=== PATIENT | male | born 1980 | race Caucasian/White ===

== ENCOUNTER 2017-05-23 18:06 | Inpatient (IN) | payer OTHER ==
[~2017-05-23] VITALS: Ht 188 cm; Wt 86.2 kg
--- NOTE | 2017-05-23 18:48 | ED PSYCHIATRIC COMPLAINT ---
History of Present Illness General Chief Complaint: ETOH/Drug Related Complaint Stated Complaint: ETOH DETOX Source: patient Exam Limitations: no limitations Vital Signs & Intake/Output Vital Signs & Intake/Output Vital Signs Date Time Temp Pulse Resp B/P B/P Pulse O2 O2 Flow FiO2 Mean Ox Delivery Rate 05/24 1245 98.1 96 20 142/89 05/24 1244 98.1 96 20 142/89 05/24 1238 98.1 96 20 142/89 100 Room Air 05/24 0738 98.3 76 18 138/83 98 Room Air 05/24 0530 99.0 81 20 124/82 05/24 0530 99.0 81 20 124/82 99 Room Air 05/24 0130 98.2 90 20 130/96 05/24 0119 98.2 90 20 130/96 98 Room Air 05/24 0030 99.1 90 18 140/80 05/24 0030 99.1 90 18 140/80 99 Room Air 05/23 2330 99.6 92 18 132/86 99 Room Air 05/23 2234 99.5 91 18 133/82 05/23 2230 99.6 92 18 132/86 05/23 2229 99.5 91 18 133/82 100 Room Air 05/23 2030 99.5 100 18 142/97 05/23 2029 99.5 100 18 142/97 05/23 2023 99.5 100 18 142/97 05/23 2019 99.5 100 18 142/97 98 Room Air 05/23 1928 Room Air 05/23 1812 98.1 92 18 162/112 98 Room Air ED Intake and Output 05/24 0000 05/23 1200 Intake Total 960 Output Total Balance 960 Intake, Oral 960 Patient 180 lb Weight Weight Reported by Patient Measurement Method Allergies Coded Allergies: Sulfa (Sulfonamide Antibiotics) (Severe, rash 05/23/17) Triage Note: 36 YO MALE TO TRIAGE REQUESTING ETOH DETOX. STATES HE DRINKA ABOUT A LITER OF VODKA DAILY, LAST DRINK WAS THIS AM. STATES HIS LAST DETOX WAS ABOUT 1 WEEK AGO, STATES HE WAS SENT IN FROM [facility] FOR DETOX. DENIES SEZUIRE HISTORY. DENIES SI/HI Triage Nurses Notes Reviewed? yes Onset: Gradual Duration: worse persistent since (8 years) Timing: recent history Severity: moderate HPI: Patient is a 36-year-old male presenting to the emergency department to complaint of requesting alcohol detox. He usually drinks 1 L of vodka daily. Last drink was this morning around 10 AM. Took 6-8 shots of vodka. Denies any other alcohol use. No other drug use. Recently was admitted to detox and discharged approximately 2 weeks ago. He lasted about 2 days before drinking again. Denies any suicidal or homicidal ideation. When he doesn't drink he feels anxious and tremulous. Denies any hallucinations. Denies any withdrawal seizures or history of them. No abdominal pain. No diarrhea. Nausea without vomiting. (Viridiana Chilel) Reconcile Medications Bupropion HCl (Bupropion XL) 300 MG TAB.ER.24H 1 TAB PO DAILY MENTAL HEALTH ( Reported) Hydrochlorothiazide 25 MG TABLET 1 TAB PO DAILY HEART (Reported) Lisinopril 40 MG TABLET 1 TAB PO DAILY HEART (Reported) (Celia Rosales MD) Past History Travel History Traveled to [place] past 21 day No Medical History Any Pertinent Medical History? 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 No (Viridiana Chilel) Review of Systems Review of Systems Constitutional: Reports: malaise. Comments Review of systems: See HPI, All other systems negative. Constitutional, no chills fever or weight loss HEENT: No visual changes no sore throat no congestion Cardiovascular: No chest pain ,palpitation , orthopnea or ankle swelling Skin, no jaundice no rashes Respiratory: No dyspnea cough sputum or hemoptysis GI: pos nausea : No dysuria No hematuria Muscle skeletal: no back pain, no neck pain, Neurologic: No numbness no confusion no headaches Psych: pos stress and anxiety Heme/endocrine: No bruising no bleeding no polyuria or polydipsia Immunology: No splenectomy or history of AIDS (Viridiana Chilel) Physical Exam Physical Exam General Appearance: no apparent distress, alert, awake, comfortable Neurological/Psychiatric: alert Comments: Well-developed well-nourished person in no acute distress HEENT: . Pupils equally round and reactive to light and accommodation. Nose is atraumatic. Neck: Inspection Back: Nontender Cardiovascular: Regular rate and rhythms no murmurs rubs or gallops, normal JVP Respiratory: No respiratory distress.breath sounds clear to auscultation bilaterally Abdomen: Soft, nontender nondistended, no appreciable organomegaly. Normal bowel sounds. No ascites Extremity: No edema Neuro: Alert oriented x3 Skin: Face appears flushed, otherwise ,No appreciable rash on exposed skin, skin is warm and dry. Psych: anxious appearing, slightly tremulous, memory and judgment is normal. SAD PERSONS Done? patient not suicidal (Federica MCCANN,Viridiana) Progress Differential Diagnosis: pancreatitis, electrolyte abnormality, dehydration, alcohol withdrawal, polysubstance abuse Plan of Care: Orders Procedure Date/time Status Regular Diet 05/24 B Active Patient Data 05/24 1235 Active ED Holding Orders 05/24 1220 Active Admit to inpatient 05/24 1220 Active Vital Signs 05/24 1220 Active Code Status 05/24 1220 Active Pathway - chart 05/24 1154 Active CASE MANAGEMENT CONSULT 05/24 0732 Active CASE MANAGEMENT CONSULT 05/24 0719 Active Intake & Output 05/23 2057 Active Add-on Test (ER Only) 05/23 2034 Active LIPASE 05/23 1855 Complete AMYLASE 05/23 1855 Complete CIWA 05/23 1823 Active URINE DRUG SCREEN FOR ER ONLY 05/23 1809 Complete ETHANOL 05/23 1809 Complete COMPREHENSIVE METABOLIC PANEL 05/23 1809 Complete CBC WITHOUT DIFFERENTIAL 05/23 1809 Complete Current Medications Sig/Urmila Start time Last Medication Dose Stop Time Status Admin Lorazepam 1 MG Q12H 05/26 0000 AC (Ativan) 05/26 1201 Lorazepam 1.5 MG Q6 05/25 0600 AC (Ativan) 05/25 1801 Lorazepam 2 MG Q6 05/24 1200 AC (Ativan) 05/25 0001 Lorazepam 1 MG Q2P PRN 05/24 1200 AC (Ativan) Folic Acid 1 MG DAILY 05/24 1154 UNVr 05/24 (Folic Acid) 05/26 1001 1245 Multivitamins 1 TAB DAILY 05/24 1154 UNVr 05/24 (Theragran Vitamins) 1245 Thiamine HCl 100 MG DAILY 05/24 1154 UNVr 05/24 (Vitamin B1) 05/26 1001 1245 Bupropion HCl 300 MG DAILY 05/24 1153 UNVr 05/24 (Wellbutrin XL) 1245 Hydrochlorothiazide 25 MG DAILY 05/24 1153 UNVr 05/24 (Hydrodiuril) 1245 Lisinopril 40 MG DAILY 05/24 1153 UNVr 05/24 (Prinivil) 1245 Sodium Chloride 1,000 ML ONCE ONE 05/23 194 CAN (Normal Saline 0.9%) 05/24 223 Laboratory Tests 05/23/17 1855: Anion Gap 24 H, Estimated GFR > 60, BUN/Creatinine Ratio 13.6, Glucose 118 H, Calcium 9.3, Total Bilirubin 0.7, AST 116 H, ALT 158 H, Alkaline Phosphatase 74, Total Protein 7.5, Albumin 4.8, Globulin 2.7, Albumin/Globulin Ratio 1.8, Amylase 39, Lipase 200, CBC w Diff NO MAN DIFF REQ, RBC 4.75, MCV 94.5 H, MCH 32.4 H, RDW 14.8 H, MPV 6.8 L, Gran % 74.2, Lymphocytes % 18.6 L, Monocytes % 6.9, Eosinophils % 0.1, Basophils % 0.2, Absolute Granulocytes 5.2, Absolute Lymphocytes 1.3, Absolute Monocytes 0.5, Absolute Eosinophils 0, Absolute Basophils 0, PUBS MCHC 34.3, Serum Alcohol 204.0 05/23/17 1850: Urine Opiates Screen < 100.00, Methadone Screen < 40, Barbiturate Screen < 60, Ur Phencyclidine Scrn < 6.00, Amphetamines Screen < 100, U Benzodiazepines Scrn > 800 H, Urine Cocaine Screen < 50, Urine Cannabis Screen < 5.00 7:18 AM PATIENT SIGNED OUT TO ME BY DR SALINAS, PENDING CASE MANAGEMENT EVALUATION. 11:00 AM D/W KRAIG FROM CASE MANAGEMENT, WILL WORK ON VERIFYING INSURANCE FOR ADMISSION PURPOSES. 12:20 PM PATIENT APPROVED FOR INPATIENT ADMISSION. MEDICATED WITH DAILY MEDICATIONS AND ATIVAN, PATIENT TREMULOUS. D/W DR AUGUSTIN, D/W MOD. (Bobby POWER,Celia) Hand-Off Endorsed To: [place]ced POWER,Cruz Bustillo Endorsed Time: 2299 Pending: other (Federica MCCANNViridiana) Hand-Off Endorsed To: Celia Rosales MD Endorsed Time: 0700 Pending: other (INSURANCE VERIVICATION) ([place] POWER,Cruz Bustillo) Departure Departure Clinical Impression Primary Impression: Alcohol withdrawal Qualifiers: Complication of substance-induced condition: uncomplicated Qualified Code: F10.230 - Alcohol dependence with withdrawal, uncomplicated Departure Forms: Customer Survey General Discharge Information (Viridiana Chilel) Departure Disposition: STILL A PATIENT Condition: Guarded PA/SPOOLING SUPERVISOR Co-Sign Statement Statement: ED Attending supervision documentation- [X] I saw and evaluated the patient. I have also reviewed all the pertinent lab results and diagnostic results. I agree with the findings and the plan of care as documented in the PA's/SPOOLING SUPERVISOR's documentation. [X] I have reviewed the ED Record and agree with the PA's/SPOOLING SUPERVISOR's documentation. [] Additions or exceptions (if any) to the PAs/SPOOLING SUPERVISOR's note and plan are summarized below: [PT WAS AT DETOX 2 WEEKS AGO. Patient's CIWA score is escalating and is now up to 15. This puts patient at high risk for withdrawal seizure. Patient will require admission to the hospital. His insurance will need to be verified.] (Merced POWER,Cruz Bustillo) Departure Time of Disposition: 1221 Admission Note Spoke With: Avery Augustin MD Documentation of Exam: Documentation of any treatments & extenuating circumstances including Concerns Regarding Discharge (functional status, medication knowledge or non-compliance, living conditions, etc.) that warrant an admission rather than observation: [ CIWA MONITOR, ATIVAN TAPER, SEIZURE PRECAUTIONS, CRISIS CONSULTATION, TRANSFER TO OUTPATIENT REHAB WHEN STABLE] PA/SPOOLING SUPERVISOR Co-Sign Statement Statement: ED Attending supervision documentation- [] I saw and evaluated the patient. I have also reviewed all the pertinent lab results and diagnostic results. I agree with the findings and the plan of care as documented in the PA's/SPOOLING SUPERVISOR's documentation. [] I have reviewed the ED Record and agree with the PA's/SPOOLING SUPERVISOR's documentation. [] Additions or exceptions (if any) to the PAs/SPOOLING SUPERVISOR's note and plan are summarized below: [] (Celia Rosales MD)
[2017-05-23 19:09] LABS: ABSOLUTE BASOPHIL COUNT 0 /CUMM (0.0-0.2); ABSOLUTE EOSINOPHIL COUNT 0 /CUMM (0.0-0.7); ABSOLUTE GRANULOCYTE CT 5.2 /CUMM (1.4-6.5); ABSOLUTE LYMPH COUNT 1.3 /CUMM (1.2-3.4); ABSOLUTE MONOCYTE COUNT 0.5 /CUMM (0.10-0.60); BASOPHIL % 0.2 % (0.0-2.0); EOSINOPHIL % 0.1 % (0-5); GRANULOCYTE % 74.2 % (42.2-75.2); HEMATOCRIT 44.8 % (42-52); MEAN CORPUSCULAR HGB 32.4 PG (27.0-31.0); MEAN CORPUSCULAR HGB CONC 34.3 G/DL (33.0-37.0); MEAN CORPUSCULAR VOLUME 94.5 FL (80.0-94.0); MEAN PLATELET VOLUME 6.8 FL (7.4-10.4); PLATELET COUNT 340 /CUMM (130-400); RBC DISTRIBUTION WIDTH 14.8 % (11.5-14.5); RED BLOOD CELL CT 4.75 /CUMM (4.70-6.10); WHITE BLOOD CELL COUNT 7.1 /CUMM (4.8-10.8)
[2017-05-23 20:24] VITALS: BP 142/97
[2017-05-23 22:30] VITALS: BP 132/86
[2017-05-23 22:34] VITALS: BP 133/82
[2017-05-24] VITALS (12 sets, daily range): BP systolic 124–157; BP diastolic 80–100
[2017-05-24] MEDS ORDERED: BUPROPION XL300 M1 PO (12:03)
[2017-05-24] MEDS ORDERED: LISINOPRIL40 M1 PO (12:03)
[2017-05-24] MEDS ORDERED: HYDROCHLOROTHIA25 M1 PO (12:04)
--- NOTE | 2017-05-24 13:42 | History & Physical ---
Michael POWER,[facility] 05/24/17 1342: General Information and HPI MD Statement: I have seen and personally examined MICHAEL CHEN and documented this H&P. The patient is a 36 year old M who presented with a patient stated chief complaint of []. Source of Information: patient, family Exam Limitations: no limitations History of Present Illness: Chief complaint: Alcohol detox 36 years old male with past medical history of hypertension and depression, who presented to [facility] for alcohol detox. Patient has a long history of alcohol abuse for which he has undergone alcohol detox in facilities around 6-7 times in addition to several detox or 5 times in the past. His last admission in for alcohol detox was on the day before [place] and for which he stayed for 5 days however the patient started drinking 3 days after being discharged. Patient starts drinking when he feels anxious or depressed over his work problems or financial issues. Patient usually drinks 1 L of vodka daily in addition to multiple beers daily. His last drink was the day before admission at 10 AM. Patient went to [facility] which may have requesting detox but they required him to come to the hospital for medical stabilization since his CIWA score was too high. Patient reports feeling anxious and having showers when he stopped drinking, he denied any history of withdrawal seizures or ICU admissions in the past. Patient also reports some history of depression was suicidal attempts in the past, currently he is compliant with his meds. Currently the patient reports depressed mood and he stated that he wanted lying however he denies any suicidal ideation or plans. Patient also reports history of oral and genital herpes 3 weeks ago, currently is sexually active with one female partner and he does not use condoms Patient has history of smoking 1 pack per cigarettes daily for 15 years, he quit it 1 year ago. He denies recreational drug use Allergies/Medications Allergies: Coded Allergies: Sulfa (Sulfonamide Antibiotics) (Severe, rash 05/23/17) Home Med list Bupropion HCl (Bupropion XL) 300 MG TAB.ER.24H 1 TAB PO DAILY MENTAL HEALTH ( Reported) Hydrochlorothiazide 25 MG TABLET 1 TAB PO DAILY HEART (Reported) Lisinopril 40 MG TABLET 1 TAB PO DAILY HEART (Reported) Past History Travel History Traveled to [place] past 21 day No Medical History Neurological: NONE EENT: allergies Cardiovascular: hypertension Respiratory: NONE Gastrointestinal: NONE Hepatic: NONE Renal: NONE Musculoskeletal: NONE Psychiatric: anxiety, depression Endocrine: NONE Blood Disorders: NONE Cancer(s): NONE 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 Cardiovascular: Denies: chest pain, edema, orthopena, palpitations. Respiratory: Denies: cough, hemoptysis, short of breath. GI: Denies: bloating, constipation, diarrhea, nausea, vomiting. Genitourinary: Denies: no symptoms. Musculoskeletal: Denies: no symptoms. Skin: Denies: no symptoms. Neurological/Psychological: Reports: anxiety, tremors. Hematologic/Endocrine: Denies: no symptoms. Exam & Diagnostic Data Last 24 Hrs of Vital Signs/I&O Vital Signs Date Time Temp Pulse Resp B/P B/P Pulse O2 O2 Flow FiO2 Mean Ox Delivery Rate 05/24 1245 98.1 96 20 142/89 05/24 1244 98.1 96 20 142/89 05/24 1238 98.1 96 20 142/89 100 Room Air 05/24 0738 98.3 76 18 138/83 98 Room Air 05/24 0530 99.0 81 20 124/82 05/24 0530 99.0 81 20 124/82 99 Room Air 05/24 0130 98.2 90 20 130/96 05/24 0119 98.2 90 20 130/96 98 Room Air 05/24 0030 99.1 90 18 140/80 05/24 0030 99.1 90 18 140/80 99 Room Air 05/23 2330 99.6 92 18 132/86 99 Room Air 05/23 2234 99.5 91 18 133/82 05/23 2230 99.6 92 18 132/86 05/23 2229 99.5 91 18 133/82 100 Room Air 05/23 2029 99.5 100 18 142/97 05/23 2029 99.5 100 18 142/97 05/23 2023 99.5 100 18 142/97 05/23 2019 99.5 100 18 142/97 98 Room Air 05/23 1928 Room Air 05/23 181 98.1 92 18 162/112 98 Room Air Intake & Output 05/24 1600 05/24 0800 05/24 0000 Intake Total 960 Output Total Balance 960 Intake, Oral 960 Patient 180 lb Weight Weight Reported by Patient Measurement Method Physical Exam General Appearance Alert, Oriented X3, Cooperative Skin No Rashes, No Breakdown, No Significant Lesion, flushed skin HEENT Atraumatic, PERRLA, EOMI, Mucous Membr. moist/pink Neck Supple, No JVD Cardiovascular Regular Rate, Normal S1, Normal S2, No Murmurs Lungs Clear to Auscultation, Normal Air Movement Abdomen Normal Bowel Sounds, Soft, No Tenderness Neurological Normal Speech, Strength at 5/5 X4 Ext, bilateral tremors in both hands Extremities No Clubbing, No Cyanosis, No Edema, Normal Pulses Vascular Normal Pulses, Pulses Symmetrical Sepsis Peripheral Pulse Location: Radial Assessment/Plan Assessment: 36 years old male with past medical history of hypertension and depression, who presented to [facility] for alcohol detox. Patient has a long history of alcohol abuse for which he has undergone alcohol detox in facilities around 6-7 times in addition to several detox or 5 times in the past Vital signs on admission: Were normal except for mild increased blood pressure of 142/89 Labs on admission: CBC normal, BEp: Normal sodium and potassium, normal blood urea nitrogen, creatinine, elevated glucose of 118, anion gap 24, elevated AST of 116, AST 158, amylase 39, lipase 200, U tox was positive for benzo more than 800 #Alcohol withdrawal: Admit the patient to the general medicine floor CIWA score, closely watch for delirium tremens Ativan IV when necessary Ativan 2 mg every 6po Thiamine, Vitamin vitamin B12, folic acid supplementation Social consult Psych consult appreciated #medical conditions including depression and hypertension Continue home dose of hydrochlorothiazide, lisinopril,Bupropion Regular diet Full code DVT prophylaxis with subcutaneous Lovenox As Ranked By This Provider Problem List: 1. Alcohol withdrawal Qualifiers Complication of substance-induced condition: uncomplicated Qualified Code: F10.230 - Alcohol dependence with withdrawal, uncomplicated Core Measures/Misc (01/30) Acute Coronary Syndrome ACS Diagnosis: No Congestive Heart Failure Congestive Heart Failure Diagnosis No Cerebrovascular Accident CVA/TIA Diagnosis: No VTE (View Protocol) VTE Risk Factors Other No Mechanical VTE Prophylaxis d/t N/A MechProphylax Ordered No VTE Pharm Prophylaxis d/t NA PharmProphylax ordered Sepsis (View protocol) Sepsis Present: No Nellie POWER,Avery 05/24/17 1534: Attending MD Review Statement Attending Statement Attending MD Statement: examined this patient, discuss w/resident/PA/MARKETING TECHNOLOGY COORDINATOR, agreed w/resident/PA/MARKETING TECHNOLOGY COORDINATOR, reviewed EMR data (avail) Attending Assessment/Plan: Agree with resident assessment and plan. Will start PO Ativan standing and PRN IV, monitor for electrolyte abnormalities, social work consult, DVT PPx Tim Williamson 05/24/17 2104: Resident Review Statement Resident Statement: examined this patient, discussed with inclusion intern, agreed with inclusion intern, discussed with family, reviewed EMR data (avail), discussed with nursing , discussed with case mgmt, reviewed images, amended to note Other Findings: This is 36 years old male with past medical history of hypertension, alcohol withdrawal, record dependence, and depression, who presented to [facility] for alcohol detox. Patient reports multiple admission for alcohol detox in the [facility] and multiple admission to the alcohol rehabilitation. Patient starts drinking when he feels anxious or depressed over his work problems or financial issues. Patient usually drinks 1 L of vodka daily in addition to multiple beers daily. Patient reports feeling depressed, thought about , patient denied any current suicidal thoughts, ideation or plan. Patient reports tremor, sweating, hot flashes, heart racing, denies visual or voice hallucination. Patient also reports history of oral and genital herpes 3 weeks ago, currently is sexually active with one female partner and he does not use condoms. Physical examination, lab and imaging as above. Problem list: -Alcohol withdrawal/detox -Alcohol dependence -Depression/anxiety -Transaminitis -Anion gap -Hypertension. Plan: -Admit patient to general medical -Vitals every shift -Ativan by mouth every 6 -Ativan as needed pre [facility] protocol -Thiamine, multiple vitamin, folic acid supplement -Continue home medication -office worker consultation -Psychiatric consultation -Repeat CBC and basic electrolyte in a.m. -Regular diet -Pain pathway -DVT prophylaxis -Full code
--- NOTE | 2017-05-24 15:35 | Admission Certification ---
Admission Certification Certification Statement - As attending physician, I certify that at the time of - admission, based on clinical presentation, severity of - symptoms, need for further diagnostic testing and - therapeutic interventions, and risk of adverse outcomes - without in-hospital treatment, in my clinical assessment, - this patient requires an acute hospital stay for a minimum - of two nights or longer. I have also considered psychsocial - factors such as support system, advanced age, financial - issues, cognitive issues, and failed out-patient treatments, - past re-admission history, safety of patient, and lack of - compliance as applicable. Specific rationale supporting this admission is: Alcohol withdrawal with a history of DTs
[2017-05-25] VITALS (10 sets, daily range): BP systolic 136–146; BP diastolic 82–100
--- NOTE | 2017-05-25 07:43 | PN- Housestaff ---
Michael POWER,Marisol 05/25/17 0743: Subjective Follow-up For: Alcohol withdrawal medical conditions including depression and hypertension Subjective: Patient is seen and examined at bedside, he denies any symptoms of shakiness or anxiety, fever, maximum CIWA score in the last 24 hours was 14, patient reports having better mood today . She denies any chest pain, nausea, vomiting or diarrhea Review of Systems Constitutional: Denies: no symptoms. Cardiovascular: Denies: no symptoms. Respiratory: Denies: no symptoms. Gastrointestinal: Denies: no symptoms. Genitourinary: Denies: no symptoms. Musculoskeletal: Denies: no symptoms. Neurological/Psychological: Reports: see HPI. Objective Last 24 Hrs of Vital Signs/I&O Vital Signs Date Time Temp Pulse Resp B/P B/P Pulse O2 O2 Flow FiO2 Mean Ox Delivery Rate 05/25 0958 98.8 100 20 140/100 99 Room Air 05/25 0850 144/92 05/25 0800 146/92 05/25 0715 98.5 95 18 138/98 100 05/25 0700 98.5 95 18 138/98 05/25 0500 97.7 78 18 136/82 05/25 0300 97.7 78 18 136/82 05/25 0200 97.7 78 18 136/82 99 05/25 0100 98.3 70 18 140/100 05/24 2300 98.3 70 18 140/100 05/24 2200 98.3 70 18 140/100 100 Room Air 05/24 2100 98.7 87 18 156/100 05/24 1900 98.7 87 18 156/100 05/24 1801 156/100 05/24 1800 98.1 93 18 156/100 100 Room Air 05/24 1733 98.7 87 18 158/96 100 Room Air 05/24 1603 99.8 82 19 154/84 05/24 1557 99.8 82 19 154/84 99 Room Air 05/24 1433 99.5 85 18 157/96 05/24 1430 99.5 85 18 157/96 100 Room Air 05/24 1245 98.1 96 20 142/89 05/24 1244 98.1 96 20 142/89 05/24 1238 98.1 96 20 142/89 100 Room Air Intake & Output 05/25 1600 05/25 0800 05/25 0000 Intake Total 480 250 Output Total 120 Balance -120 480 250 Intake, IV 0 10 Intake, Oral 480 240 Number 0 0 Bowel Movements Output, Urine 120 Patient 190 lb Weight Weight Reported by Patient Measurement Method Physical Exam General Appearance: Alert, Oriented X3, Cooperative, No Acute Distress HEENT: Atraumatic, PERRLA, EOMI, Mucous Membr. moist/pink Neck: Supple, No JVD Cardiovascular: Normal S1, Normal S2, No Murmurs Lungs: Clear to Auscultation, Normal Air Movement Abdomen: Normal Bowel Sounds, Soft, No Tenderness Neurological: Normal Speech, Strength at 5/5 X4 Ext, Normal Tone, Sensation Intact Extremities: No Clubbing, No Cyanosis, No Edema Vascular: Normal Pulses Sepsis Peripheral Pulse Location: Radial Assessment/Plan Assessment: 36 years old male with past medical history of hypertension and depression, who presented to [facility] for alcohol detox. Patient has a long history of alcohol abuse for which he has undergone alcohol detox in facilities around 6-7 times in addition to several detox or 5 times in the past #Alcohol withdrawal: Maximum CIWA score) 24 hours was 14, patient required 2 mg Ativan IV overnight Admit the patient to the general medicine floor Ativan IV when necessary Ativan 2 mg every 6po Thiamine, Vitamin vitamin B12, folic acid supplementation Social consult Psych consult appreciated #medical conditions including depression and hypertension Continue home dose of hydrochlorothiazide, lisinopril,Bupropion Regular diet Full code DVT prophylaxis with subcutaneous Lovenox Problem List: 1. Alcohol withdrawal Pain Ratin Pain Location: N/A Pain Goal: Remain pain free Pain Plan: Pain pathway Tomorrow's Labs & Rationales: cbc bep DVT/Prophylaxis: pharmacological Avery Ballard MD 05/25/17 1048: Attending MD Review Statement Attending Statement Attending MD Statement: examined this patient, discuss w/resident/PA/PHOTO PRINTER, agreed w/resident/PA/PHOTO PRINTER, reviewed EMR data (avail) Attending Assessment/Plan: Doing well. CIWA controlled. Will continue Ativan taper.
[2017-05-25 09:30] LABS: ABSOLUTE BASOPHIL COUNT 0 /CUMM (0.0-0.2); ABSOLUTE EOSINOPHIL COUNT 0.2 /CUMM (0.0-0.7); ABSOLUTE GRANULOCYTE CT 3.6 /CUMM (1.4-6.5); ABSOLUTE LYMPH COUNT 1.4 /CUMM (1.2-3.4); ABSOLUTE MONOCYTE COUNT 0.4 /CUMM (0.10-0.60); BASOPHIL % 0.5 % (0.0-2.0); EOSINOPHIL % 3.3 % (0-5); GRANULOCYTE % 63.8 % (42.2-75.2); HEMATOCRIT 43.9 % (42-52); MEAN CORPUSCULAR HGB 32.3 PG (27.0-31.0); MEAN CORPUSCULAR HGB CONC 33.8 G/DL (33.0-37.0); MEAN CORPUSCULAR VOLUME 95.4 FL (80.0-94.0); MEAN PLATELET VOLUME 8.5 FL (7.4-10.4); RBC DISTRIBUTION WIDTH 14.4 % (11.5-14.5)
[2017-05-25 10:53] LABS: PLATELET COUNT 194 /CUMM (130-400); WHITE BLOOD CELL COUNT 7.3 /CUMM (4.8-10.8)
[2017-05-26 00:54] VITALS: BP 128/84
[2017-05-26 02:05] VITALS: BP 136/104
--- NOTE | 2017-05-26 07:16 | PN- Housestaff ---
Michael POWER,Marisol 05/26/17 0716: Subjective Follow-up For: Alcohol withdrawal medical conditions including depression and hypertension Subjective: Patient is seen and examined at bedside, he denies any symptoms of shakiness or anxiety, fever, maximum CIWA score in the last 24 hours was 4, patient reports having better mood today . She denies any chest pain, nausea, vomiting or diarrhea Review of Systems Constitutional: Denies: no symptoms. Cardiovascular: Denies: no symptoms. Respiratory: Denies: no symptoms. Gastrointestinal: Denies: no symptoms. Genitourinary: Denies: no symptoms. Musculoskeletal: Denies: no symptoms. Objective Last 24 Hrs of Vital Signs/I&O Vital Signs Date Time Temp Pulse Resp B/P B/P Pulse O2 O2 Flow FiO2 Mean Ox Delivery Rate 05/26 1342 98.8 108 20 132/81 98 Room Air 05/26 0900 98.0 118 20 140/98 100 Room Air 05/26 0205 98.0 90 18 136/104 97 05/26 0054 97.8 99 20 128/84 99 05/25 2212 98.6 80 20 143/90 98 Room Air Intake & Output 05/26 1600 05/26 0800 05/26 0000 Intake Total 240 240 Output Total Balance 240 240 Intake, Oral 240 240 Physical Exam General Appearance: Alert, Oriented X3, Cooperative, No Acute Distress Skin: No Rashes, No Breakdown, No Significant Lesion HEENT: Atraumatic, PERRLA, EOMI, Mucous Membr. moist/pink Neck: Supple, No JVD Cardiovascular: Regular Rate, Normal S1, Normal S2, No Murmurs Lungs: Clear to Auscultation, Normal Air Movement Abdomen: Normal Bowel Sounds, Soft, No Tenderness Neurological: Normal Speech, Strength at 5/5 X4 Ext, Normal Tone, Sensation Intact Extremities: No Clubbing, No Cyanosis, No Edema Vascular: Normal Pulses Assessment/Plan Assessment: 36 years old male with past medical history of hypertension and depression, who presented to [facility] for alcohol detox. Patient has a long history of alcohol abuse for which he has undergone alcohol detox in facilities around 6-7 times in addition to several detox or 5 times in the past #Alcohol withdrawal: Maximum CIWA score) 24 hours was 4, patient did not require IV Ativan overnight Continue to monitor on general medicine floor Ativan IV when necessary Ativan 1.5 mg every 6po Seroquel when necessary at night for insomnia Thiamine, Vitamin vitamin B12, folic acid supplementation Social consult #medical conditions including depression and hypertension Continue home dose of hydrochlorothiazide, lisinopril,Bupropion Regular diet Full code DVT prophylaxis with subcutaneous Lovenox Problem List: 1. Alcohol withdrawal Pain Ratin Pain Location: n/a Pain Goal: Pain 4 or less Pain Plan: PAIN PATHWAY Tomorrow's Labs & Rationales: CBC BEP DVT/Prophylaxis: mechanical, pharmacological Avery Ballard MD 05/26/17 1143: Attending MD Review Statement Attending Statement Attending MD Statement: examined this patient, discuss w/resident/PA/GLOBE CLEANER, agreed w/resident/PA/GLOBE CLEANER, reviewed EMR data (avail) Attending Assessment/Plan: Doing well on Ativan taper, will continue current management, taper tomorrow with anticipated discharge tomorrow to [facility].
[2017-05-26 08:13] LABS: ABSOLUTE BASOPHIL COUNT 0 /CUMM (0.0-0.2); ABSOLUTE EOSINOPHIL COUNT 0.2 /CUMM (0.0-0.7); ABSOLUTE GRANULOCYTE CT 4.2 /CUMM (1.4-6.5); ABSOLUTE MONOCYTE COUNT 0.3 /CUMM (0.10-0.60); BASOPHIL % 0.3 % (0.0-2.0); EOSINOPHIL % 2.8 % (0-5); GRANULOCYTE % 73.6 % (42.2-75.2); MEAN CORPUSCULAR HGB 32.7 PG (27.0-31.0); MEAN CORPUSCULAR HGB CONC 34.2 G/DL (33.0-37.0); MEAN CORPUSCULAR VOLUME 95.5 FL (80.0-94.0); PLATELET COUNT 160 /CUMM (130-400); RBC DISTRIBUTION WIDTH 14.6 % (11.5-14.5); WHITE BLOOD CELL COUNT 5.6 /CUMM (4.8-10.8)
[2017-05-26 09:00] VITALS: BP 140/98
[2017-05-26 13:42] VITALS: BP 132/81
--- NOTE | 2017-05-26 14:17 | Cons- Psychiatry ---
Psychiatric Consult Date of Consult: 05/26/17 Reason for Consult: "Depression, anxiety, Hx of multiple ETOH detox." History of Present Illness: 36 M had presented to [facility] for alcohol rehab, but was sent to the ED and admitted medically to complete his detox. Allergies: Coded Allergies: Sulfa (Sulfonamide Antibiotics) (Severe, rash 05/23/17) Current Medications: Current Medications Sig/Urmila Start time Last Medication Dose Route Stop Time Status Admin Acetaminophen 500 MG Q6P PRN 05/24 1345 AC PO Bupropion HCl 300 MG DAILY 05/24 1153 AC 05/26 PO 1036 Enoxaparin Sodium 40 MG 1700 05/25 1700 AC 05/25 SC 1750 Folic Acid 1 MG DAILY 05/24 1342 AC 05/26 PO 1036 Hydrochlorothiazide 25 MG DAILY 05/24 1153 AC 05/26 PO 1036 Hydrocodone Bitart/ 1 TAB Q8P PRN 05/24 1345 AC Acetaminophen PO Lisinopril 40 MG DAILY 05/24 1153 AC 05/26 PO 1036 Lorazepam 1 MG Q6 05/26 1200 AC 05/26 PO 1243 Lorazepam 1 MG Q12H 05/26 0000 DC PO 05/26 1201 Lorazepam 2 MG Q6 05/24 1800 DC 05/26 PO 0500 Lorazepam 0 Q1P PRN 05/24 1345 AC 05/24 IV 1616 Multivitamins 1 TAB DAILY 05/24 1341 AC 05/26 PO 1037 Oxycodone HCl 5 MG Q6P PRN 05/24 1345 AC PO Thiamine HCl 100 MG DAILY 05/24 1341 AC 05/26 PO 1036 Past History Past Medical History Neurological: NONE EENT: allergies Cardiovascular: hypertension Respiratory: NONE Gastrointestinal: NONE Hepatic: NONE Renal: NONE Musculoskeletal: NONE Psychiatric: anxiety, depression Endocrine: NONE Blood Disorders: NONE Cancer(s): NONE FINANCIAL AID ADVISOR/Reproductive: NONE Past Surgical History Surgical History: non-contributory Psychosocial History Strengths/Capabilities: Motivated for treatment and has a supportive family Physical Limitations (Interventions): None Psychiatric Treatment History Psych Treatment Psychiatric Treatment Yes Inpatient Treatment Yes Outpatient Treatment Yes Location of Treatment [facility] in [place] Reason for Treatment Suicide attempt by wrist cutting and alcohol abuse Dates of Treatment 2012 Response to Treatment Unknown Diagnosis: Alcohol use d/o Risk Factors: history of suicide atmpts, SA/MH hospitalized, substance abuse, male Substance Use/Abuse History Drug Use/Abuse Substances Used/Abused Yes Substance Used/Abused Alcohol First Use Not 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 Denies SI of HI, but reports suicide attempt by wrist cutting in 2012, for which he was hospitalized. Depression 05/25; anxiety 09/22; 10 is the worst Denies hopelessness and helplessness, but reports worthlessness and guilt sometimes. Guilt is related to putting his family through another rehab incident. He reports difficulty with sleep initiation and maintenance. He has tried melatonin, Benadryl, Trazodone, and is asking for low dose Seroquel. He lives with his girlfriend and he has not children. He was started on bupropion in 2012 during his hospitalization. Lab Results: Laboratory Tests 05/26 05/26 0717 0710 Chemistry Sodium (137 - 145 mmol/L) 140 Potassium (3.5 - 5.1 mmol/L) 3.6 Chloride (98 - 107 mmol/L) 100 Carbon Dioxide (22 - 30 mmol/L) 25 Anion Gap (5 - 16) 15 BUN (9 - 20 mg/dL) 12 Creatinine (0.7 - 1.2 mg/dL) 1.0 Estimated GFR (>60 ml/min) > 60 BUN/Creatinine Ratio (7 - 25 %) 12.0 Hematology CBC w Diff NO MAN DIFF REQ WBC (4.8 - 10.8 /CUMM) 5.6 RBC (4.70 - 6.10 /CUMM) 4.40 L Hgb (14.0 - 18.0 G/DL) 14.4 Hct (42 - 52 %) 42.0 MCV (80.0 - 94.0 FL) 95.5 H MCH (27.0 - 31.0 PG) 32.7 H RDW (11.5 - 14.5 %) 14.6 H Plt Count (130 - 400 /CUMM) 160 MPV (7.4 - 10.4 FL) 8.0 Gran % (42.2 - 75.2 %) 73.6 Lymphocytes % (20.5 - 51.1 %) 17.3 L Monocytes % (1.7 - 9.3 %) 6.0 Eosinophils % (0 - 5 %) 2.8 Basophils % (0.0 - 2.0 %) 0.3 Absolute Granulocytes (1.4 - 6.5 /CUMM) 4.2 Absolute Lymphocytes (1.2 - 3.4 /CUMM) 1.0 L Absolute Monocytes (0.10 - 0.60 /CUMM) 0.3 Absolute Eosinophils (0.0 - 0.7 /CUMM) 0.2 Absolute Basophils (0.0 - 0.2 /CUMM) 0 PUBS MCHC (33.0 - 37.0 G/DL) 34.2 Diffential Diagnosis: Alcohol use d/o Substance-induced mood d/o R/O depressive d/o R/O anxiety d/o Impression: The patient should probably avoid bupropion if he will drink in the future, as the medicine can lower the seizure threshold. He denies any history of seizure. He wishes to start Seroquel for insomnia, and understands that it is an off- label use. He denies cardiac history, except for his report of brief atrial fibrillation this visit. He weas encouraged to re-engage with AA with a goal of finding a sponsor. Provisional Treatment Plan: 1. Lorazepam 2 mg PO q 6 hours, but had recently been decreased to 1 mg PO q 6 hours. We suggest following the ETOH Detox protocol, and this should be changed to lorazepam 1.5 mg PO q 6 hours for 4 doses, then lorazepam 1 mg PO q 6 hours for 4 doses, then lorazepam 0.5 mg q 6 hours for 4 doses, then stop. As needed dosing per ETOH Detox order set. Please advise if you need assistance with this. 2. Consider Seroquel 25 mg PO at bedtime, as needed for insomnia, an off-label use. May repeat one time one hour later. a. Before ordering this drug, EKG and maintain electrolytes, especially potassium and magnesium, to the upper portion of the normal range. b. Hold for overseadtion, respiratory depression. c. Hold for hypokalemia or hypo magnesemia d. Hold for arrhythmia or QTc greater than 475 mS. Psychiatry is signing off. Please reconsult if other psychiatric matters arise. Thank you for this consult.
[2017-05-26 16:00] VITALS: BP 132/81
[2017-05-26 21:48] VITALS: BP 132/98
[2017-05-27] VITALS: BP 132/98
[2017-05-27 06:35] VITALS: BP 124/84
--- NOTE | 2017-05-27 07:01 | PN- Housestaff ---
Michael POWER,Marisol 05/27/17 0700: Subjective Follow-up For: Alcohol withdrawal medical conditions including depression and hypertension Subjective: Patient is seen and examined at bedside, he denies any symptoms of shakiness or anxiety, fever, maximum CIWA score in the last 24 hours was 0, patient reports having better mood today . She denies any chest pain, nausea, vomiting or diarrhea Review of Systems Constitutional: Denies: no symptoms. Objective Last 24 Hrs of Vital Signs/I&O Vital Signs Date Time Temp Pulse Resp B/P B/P Pulse O2 O2 Flow FiO2 Mean Ox Delivery Rate 05/27 0904 80 132/82 05/27 0800 90 132/82 05/27 0635 98.3 78 16 124/84 100 Room Air 05/27 0000 97.9 89 18 132/98 05/26 2148 97.9 89 18 132/98 99 Room Air 05/26 1600 108 132/81 05/26 1342 98.8 108 20 132/81 98 Room Air Intake & Output 05/27 1600 05/27 0800 05/27 0000 Intake Total 300 720 Output Total 600 Balance -300 720 Intake, Oral 300 720 Output, Urine 600 Physical Exam General Appearance: Alert, Oriented X3, Cooperative, No Acute Distress HEENT: Atraumatic, PERRLA, EOMI Neck: Supple, No JVD Cardiovascular: Regular Rate, Normal S1, Normal S2, No Murmurs Lungs: Clear to Auscultation, Normal Air Movement Abdomen: Normal Bowel Sounds, Soft Extremities: No Clubbing, No Cyanosis, No Edema Vascular: Normal Pulses Assessment/Plan Assessment: 36 years old male with past medical history of hypertension and depression, who presented to [place] ED for alcohol detox. Patient has a long history of alcohol abuse for which he has undergone alcohol detox in facilities around 6-7 times in addition to several detox or 5 times in the past #Alcohol withdrawal: Maximum CIWA score) 24 hours was 0, patient did not require IV Ativan overnight Continue to monitor on general medicine floor Ativan IV when necessary Ativan 1 mg every 6po Seroquel when necessary at night for insomnia Thiamine, Vitamin vitamin B12, folic acid supplementation Social consult #medical conditions including depression and hypertension Continue home dose of hydrochlorothiazide, lisinopril,Bupropion If he continues to do well with Ativan taper he is expected to be discharged to [facility] over the weekend Regular diet Full code DVT prophylaxis with subcutaneous Lovenox Problem List: 1. Alcohol withdrawal Pain Ratin Pain Location: N/A Pain Goal: Remain pain free Pain Plan: PATHWAY Tomorrow's Labs & Rationales: CBC BEP DVT/Prophylaxis: pharmacological Avery Ballard MD 05/27/17 1204: Attending MD Review Statement Attending Statement Attending MD Statement: examined this patient, discuss w/resident/PA/PETROLEUM PRODUCTION ENGINEER, agreed w/resident/PA/PETROLEUM PRODUCTION ENGINEER, reviewed EMR data (avail) Attending Assessment/Plan: Steadily improving, continue taper, to be discharged to [facility] tomorrow or Tuesday.
[2017-05-27 08:00] VITALS: BP 132/82
[2017-05-27 09:32] LABS: ABSOLUTE BASOPHIL COUNT 0 /CUMM (0.0-0.2); ABSOLUTE EOSINOPHIL COUNT 0.2 /CUMM (0.0-0.7); ABSOLUTE GRANULOCYTE CT 4.9 /CUMM (1.4-6.5); ABSOLUTE LYMPH COUNT 1.2 /CUMM (1.2-3.4); ABSOLUTE MONOCYTE COUNT 0.4 /CUMM (0.10-0.60); BASOPHIL % 0.3 % (0.0-2.0); EOSINOPHIL % 2.9 % (0-5); GRANULOCYTE % 73.1 % (42.2-75.2); HEMATOCRIT 40.1 % (42-52); MEAN CORPUSCULAR HGB 32.8 PG (27.0-31.0); MEAN CORPUSCULAR HGB CONC 34.4 G/DL (33.0-37.0); MEAN CORPUSCULAR VOLUME 95.3 FL (80.0-94.0); MEAN PLATELET VOLUME 8.4 FL (7.4-10.4); PLATELET COUNT 153 /CUMM (130-400); RBC DISTRIBUTION WIDTH 14.4 % (11.5-14.5); RED BLOOD CELL CT 4.21 /CUMM (4.70-6.10); WHITE BLOOD CELL COUNT 6.8 /CUMM (4.8-10.8)
[2017-05-27] MEDS ORDERED: FOLIC ACID1 M1 PO (13:38)
[2017-05-27] MEDS ORDERED: ONE DAILY MULT1 EAC2 PO (13:38)
[2017-05-27] MEDS ORDERED: VITAMIN B-1100 MG PO (13:38)
[2017-05-27 15:50] VITALS: BP 130/86
[2017-05-27 22:34] VITALS: BP 132/84
[2017-05-28 06:42] VITALS: BP 119/79
--- NOTE | 2017-05-28 07:59 | PN- Housestaff ---
Michael POWER,Marisol 05/28/17 0759: Subjective Follow-up For: Alcohol withdrawal medical conditions including depression and hypertension Subjective: Patient is seen and examined at bedside, he denies any symptoms of shakiness or anxiety, fever, maximum CIWA score in the last 24 hours was 0, patient reports having better mood today . She denies any chest pain, nausea, vomiting or diarrhea Review of Systems Constitutional: Denies: no symptoms. Cardiovascular: Denies: no symptoms. Respiratory: Denies: no symptoms. Gastrointestinal: Denies: no symptoms. Genitourinary: Denies: no symptoms. Objective Last 24 Hrs of Vital Signs/I&O Vital Signs Date Time Temp Pulse Resp B/P B/P Pulse O2 O2 Flow FiO2 Mean Ox Delivery Rate 05/28 1501 98.5 96 18 140/80 99 Room Air 05/28 1116 88 124/82 05/28 0642 98.3 82 18 119/79 98 Room Air 05/27 2234 98.0 83 18 132/84 97 Room Air Intake & Output 05/28 1600 05/28 0800 05/28 0000 Intake Total 900 Output Total Balance 900 Intake, IV 0 Intake, Oral 900 Patient 190 lb Weight Physical Exam General Appearance: Alert, Oriented X3, Cooperative, No Acute Distress HEENT: Atraumatic, PERRLA, EOMI, Mucous Membr. moist/pink Neck: Supple, No JVD Cardiovascular: Normal S1, Normal S2, No Murmurs Lungs: Clear to Auscultation, Normal Air Movement Abdomen: Normal Bowel Sounds, Soft, No Tenderness Neurological: Normal Gait, Normal Speech, Strength at 5/5 X4 Ext Extremities: No Clubbing, No Cyanosis, No Edema Vascular: Normal Pulses Assessment/Plan Assessment: 36 years old male with past medical history of hypertension and depression, who presented to [facility] for alcohol detox. Patient has a long history of alcohol abuse for which he has undergone alcohol detox in facilities around 6-7 times in addition to several detox or 5 times in the past #Alcohol withdrawal: Maximum CIWA score) 24 hours was 0, patient did not require IV Ativan overnight Continue to monitor on general medicine floor Ativan IV when necessary Ativan 1mg Q12 , to finish the taper tomorrow Seroquel when necessary at night for insomnia Thiamine, Vitamin vitamin B12, folic acid supplementation Social consult #medical conditions including depression and hypertension Continue home dose of hydrochlorothiazide, lisinopril,Bupropion If he continues to do well with Ativan taper he is expected to be discharged to [facility] tomorrow Regular diet Full code DVT prophylaxis with subcutaneous Lovenox Problem List: 1. Alcohol withdrawal Pain Ratin Pain Location: n/a Pain Goal: Remain pain free Pain Plan: pathway Tomorrow's Labs & Rationales: cbc bep DVT/Prophylaxis: mechanical, pharmacological Avery Ballard MD 05/28/17 1550: Attending MD Review Statement Attending Statement Attending MD Statement: examined this patient, discuss w/resident/PA/TEAROOM HOST, agreed w/resident/PA/TEAROOM HOST, reviewed EMR data (avail) Attending Assessment/Plan: Doing well on Ativan taper, last dose will be tomorrow followed by discharge to [facility]. Continue current management.
[2017-05-28 09:00] LABS: ABSOLUTE BASOPHIL COUNT 0 /CUMM (0.0-0.2); ABSOLUTE EOSINOPHIL COUNT 0.2 /CUMM (0.0-0.7); ABSOLUTE GRANULOCYTE CT 5.8 /CUMM (1.4-6.5); ABSOLUTE LYMPH COUNT 1.1 /CUMM (1.2-3.4); ABSOLUTE MONOCYTE COUNT 0.4 /CUMM (0.10-0.60); BASOPHIL % 0.3 % (0.0-2.0); EOSINOPHIL % 2.5 % (0-5); GRANULOCYTE % 77.6 % (42.2-75.2); MEAN CORPUSCULAR HGB 32.8 PG (27.0-31.0); MEAN CORPUSCULAR HGB CONC 34.1 G/DL (33.0-37.0); MEAN CORPUSCULAR VOLUME 96.3 FL (80.0-94.0); MEAN PLATELET VOLUME 8.5 FL (7.4-10.4); PLATELET COUNT 147 /CUMM (130-400); RED BLOOD CELL CT 4.26 /CUMM (4.70-6.10); WHITE BLOOD CELL COUNT 7.4 /CUMM (4.8-10.8)
[2017-05-28 15:01] VITALS: BP 140/80
--- NOTE | 2017-05-28 16:38 | Patient Discharge Instructions ---
Discharge Instructions General Discharge Information You were seen/treated for: Alcohol withdrawal medical conditions including depression and hypertension Special Instructions: 1please follow-up with your PCP in 1 week of discharge 2-please avoid using alcohol Diet Continue normal diet: Yes Activity Full Activity/No Limits: Yes Acute Coronary Syndrome Inclusion Criteria At DC or during hospital stay patient has or had the following: ACS DIAGNOSIS No Discharge Core Measures Meds if any: Prescribed or Continued at Discharge Meds if any: NOT Prescribed or Continued at Discharge Congestive Heart Failure Inclusion Criteria At DC or during hospital stay patient has or had the following: CHF DIAGNOSIS No Discharge Core Measures Meds if any: Prescribed or Continued at Discharge Meds if any: NOT Prescribed or Continued at Discharge Cerebrovascular accident Inclusion Criteria At DC or during hospital stay patient has or had the following: CVA/TIA Diagnosis No Discharge Core Measures Meds if any: Prescribed or Continued at Discharge Meds if any: NOT Prescribed or Continued at Discharge Venous thromboembolism Inclusion Criteria VTE Diagnosis No VTE Type NONE VTE Confirmed by (Test) NONE Discharge Core Measures - Per Current guidelines, there needs to be overlap - treatment for the first 5 days of Warfarin therapy. - If discharged on Warfarin prior to 5 days of - overlap therapy, the patient will need to be - assessed for post discharge needs including - *Post discharge parental anticoagulation - *Warfarin and/or parental anticoagulation education - *Follow up date to check INR post discharge At least 5 days overlap therapy as Inpatient No Meds if any: Prescribed or Continued at Discharge Note: Overlap Therapy is Warfarin and Anticoagulant Meds if any: NOT Prescribed or Continued at Discharge
[2017-05-28 22:22] VITALS: BP 142/80
[2017-05-29 08:29] LABS: ABSOLUTE BASOPHIL COUNT 0 /CUMM (0.0-0.2); ABSOLUTE EOSINOPHIL COUNT 0.2 /CUMM (0.0-0.7); ABSOLUTE GRANULOCYTE CT 5.2 /CUMM (1.4-6.5); ABSOLUTE LYMPH COUNT 1.3 /CUMM (1.2-3.4); ABSOLUTE MONOCYTE COUNT 0.6 /CUMM (0.10-0.60); BASOPHIL % 0.3 % (0.0-2.0); EOSINOPHIL % 2.8 % (0-5); GRANULOCYTE % 70.7 % (42.2-75.2); HEMATOCRIT 42.2 % (42-52); MEAN CORPUSCULAR HGB 32.7 PG (27.0-31.0); MEAN CORPUSCULAR HGB CONC 33.9 G/DL (33.0-37.0); MEAN CORPUSCULAR VOLUME 96.5 FL (80.0-94.0); MEAN PLATELET VOLUME 8.3 FL (7.4-10.4); PLATELET COUNT 160 /CUMM (130-400); RBC DISTRIBUTION WIDTH 14.7 % (11.5-14.5); RED BLOOD CELL CT 4.37 /CUMM (4.70-6.10); WHITE BLOOD CELL COUNT 7.3 /CUMM (4.8-10.8)
--- NOTE | 2017-05-29 08:35 | PN- Housestaff ---
Assessment/Plan Assessment: 36 years old male with past medical history of hypertension and depression, who presented to [facility] for alcohol detox. Patient has a long history of alcohol abuse for which he has undergone alcohol detox in facilities around 6-7 times in addition to several detox or 5 times in the past #Alcohol withdrawal: Maximum CIWA score) 24 hours was 0, patient did not require IV Ativan overnight Continue to monitor on general medicine floor Ativan IV when necessary Ativan 1mg Q12 , to finish the taper tomorrow Seroquel when necessary at night for insomnia Thiamine, Vitamin vitamin B12, folic acid supplementation Social consult #medical conditions including depression and hypertension Continue home dose of hydrochlorothiazide, lisinopril,Bupropion If he continues to do well with Ativan taper he is expected to be discharged to [facility] tomorrow Regular diet Full code DVT prophylaxis with subcutaneous Lovenox
--- NOTE | 2017-05-29 08:45 | PN- Housestaff ---
Subjective Follow-up For: Alcohol withdrawal medical conditions including depression and hypertension Subjective: Patient is seen and examined at bedside, he denies any symptoms of shakiness or anxiety, fever, maximum CIWA score in the last 24 hours was 0, patient reports having better mood today . She denies any chest pain, nausea, vomiting or diarrhea, Review of Systems Constitutional: Denies: no symptoms. Objective Last 24 Hrs of Vital Signs/I&O Vital Signs Date Time Temp Pulse Resp B/P B/P Pulse O2 O2 Flow FiO2 Mean Ox Delivery Rate 05/29 1052 120/78 05/28 2222 98.6 96 18 142/80 99 Room Air 05/28 1501 98.5 96 18 140/80 99 Room Air Physical Exam General Appearance: Alert, Oriented X3, Cooperative, No Acute Distress HEENT: Atraumatic, PERRLA, EOMI, Mucous Membr. moist/pink Cardiovascular: Normal S1, Normal S2, No Murmurs Lungs: Clear to Auscultation Abdomen: Normal Bowel Sounds, Soft, No Tenderness Neurological: Normal Gait, Normal Speech, Strength at 5/5 X4 Ext, Normal Tone, Sensation Intact Extremities: No Clubbing, No Cyanosis, No Edema Assessment/Plan Assessment: 36 years old male with past medical history of hypertension and depression, who presented to [place] [facility] for alcohol detox. Patient has a long history of alcohol abuse for which he has undergone alcohol detox in facilities around 6-7 times in addition to several detox or 5 times in the past #Alcohol withdrawal: Maximum CIWA score) 24 hours was 0, patient did not require IV Ativan overnight Continue to monitor on general medicine floor Ativan IV when necessary Ativan 1mg Q12 , to finish the taper today Seroquel when necessary at night for insomnia Thiamine, Vitamin vitamin B12, folic acid supplementation Social consult #medical conditions including depression and hypertension Continue home dose of hydrochlorothiazide, lisinopril,Bupropion Ativan taper is finished and the patient will be discharged to [facility] today Regular diet Full code DVT prophylaxis with subcutaneous Lovenox Problem List: 1. Alcohol withdrawal Pain Ratin Pain Location: n/a Pain Goal: Remain pain free Pain Plan: n/a Tomorrow's Labs & Rationales: n/a
[2017-05-29] MEDS ORDERED: QUETIAPINE FUMA25 M1 PO ×2 (10:16→10:27)
[2017-05-29] MEDS ORDERED: VITAMIN B-1100 MG PO (10:27)
[2017-05-29] MEDS ORDERED: FOLIC ACID1 M1 PO (10:27)
[2017-05-29 10:52] VITALS: BP 120/78
== END 2017-05-29 11:30 | DRG 897 ==
LOC: ERH 18:06 → 2NB 05-24 12:20 → ERHI 05-24 12:20 → ENRESERV 05-24 16:23 → ENTRNSPT 05-24 17:33 → CMPTRNSPT 05-24 18:06 → 2NB 05-24 18:14 → ENPENDDIS 05-29 10:24 → 2NB 05-29 11:30
PROVIDERS: Internal Medicine Hematology & Oncology; Physician Assistant Medical; Student in an Organized Health Care Education/Training Program
DX: F10.230 Alcohol dependence with withdrawal, uncomplicated (principal); F32.9 Major depressive disorder, single episode, unspecified; I10 Essential (primary) hypertension
CPT/HCPCS: 2NBSP; 36415; 80307; 82436; 93005; 93010; 96374; 96375; G0480; J1650; J2405; J3101; J3490